=== PATIENT | male | born 1965 | race Caucasian/White ===

== ENCOUNTER 2020-12-11 09:48 | Outpatient (CLI) | payer BC ==
[2020-12-11] MEDS ORDERED: FOLIC ACID PO (10:25)
[2020-12-11] MEDS ORDERED: UPAD15TA PO (10:25)
[2020-12-11] MEDS ORDERED: METH25VI22 SC (10:25)
[2020-12-11] MEDS ORDERED: MULT-717 PO (10:25)
[2020-12-11] MEDS ORDERED: METF500T17 PO (10:25)
[2020-12-11] MEDS ORDERED: ICOS1CAP PO (10:25)
[2020-12-11 10:42] LABS: BASOPHILS % (AUTO) 1 % (0-1); EOSINOPHILS % (AUTO) 2 % (1-7); LYMPHOCYTES % (AUTO) 38 % (22-44); MEAN CORPUSCULAR HEMOGLOBIN 33.2 pg (27.5-34.5); MEAN CORPUSCULAR HGB CONC 35.6 g/dL (33.2-36.2); MEAN PLATELET VOLUME 7.8 fL (7.4-10.4); MONOCYTES % (AUTO) 9 % (2-9); NEUTROPHILS % (AUTO) 51 % (42-75); PLATELET COUNT 177 x10^3/uL (130-400); RED BLOOD COUNT 4.28 x10^6/uL (4.38-5.82); RED CELL DISTRIBUTION WIDTH 13.6 % (9.4-14.8)
[2020-12-11 10:52] LABS: MICROSCOPIC NOT IND
[2020-12-11 10:52] LABS: ANION GAP 6 mmol/L (5-15); CALCIUM 8.5 mg/dL (8.5-10.1); CHLORIDE 107 mmol/L (98-107); CREATININE 0.68 mg/dL (0.7-1.3); PROTHROMBIN TIME 10.7 Seconds (9.6-11.5)
== END 2020-12-11 23:59 | disposition home or self-care (01) ==
LOC: STAR 09:48
PROVIDERS: ATTEND Urology
DX: Z01.818 Encounter for other preprocedural examination (principal); R39.15 Urgency of urination
CPT/HCPCS: 36415; 80048; 81003; 85025; 85610; 87086

== ENCOUNTER → 2020-12-17 | Outpatient (CLI) | payer BC ==
[~2020-12-17] MED LIST: FOLIC ACID PO; ICOS1CAP PO; METF500T17 PO; METH25VI22 SC; MULT-717 PO; UPAD15TA PO
== END | disposition home or self-care (01) ==
LOC: STAR 10:25
PROVIDERS: ATTEND Anesthesiology
DX: Z01.812 Encounter for preprocedural laboratory examination (principal); Z20.822 Contact with and (suspected) exposure to COVID-19
CPT/HCPCS: 36415; 87635

== ENCOUNTER 2020-12-23 09:24 | Day surgery (SDC) | payer OTHER ==
[~2020-12-23] VITALS: Ht 177.8 cm; Wt 123.2 kg
[2020-12-23 10:05] VITALS: BP 135/81
== END 2020-12-23 15:35 | disposition home or self-care (01) ==
LOC: OR 09:24
PROVIDERS: ATTEND Urology
DX: R39.15 Urgency of urination (principal); R35.0 Frequency of micturition; R30.0 Dysuria; N30.20 Other chronic cystitis without hematuria; M06.9 Rheumatoid arthritis, unspecified; G47.33 Obstructive sleep apnea (adult) (pediatric); E66.9 Obesity, unspecified; Z79.899 Other long term (current) drug therapy; Z88.0 Allergy status to penicillin; Z88.8 Allergy status to other drugs, medicaments and biological substances
CPT/HCPCS: 52204; 82962; 88305; J0330; J1100; J1885; J2250; J2405; J2704; J3010; J7120